=== PATIENT | male | born 1970 ===

== ENCOUNTER 2023-12-11 10:18 | Day surgery (SDC) | payer OTHER ==
[~2023-12-11 10:18] MED LIST: Midazolam 1 MG/ML 2 ML SDV ONE; Propofol 200 MG/20 ML SDV ONE
[2023-12-11] MEDS ORDERED: Sodium Chloride 0.9% 10 ML Syringe FLUSH PRN (10:45)
[2023-12-11] MEDS: Lactated Ringers 1,000 ML IV SCH (11:20)
[2023-12-11] MEDS ORDERED: Propofol 200 MG/20 ML SDV IV ONE (11:43)
== END 2023-12-11 12:28 | disposition home or self-care (01) ==
LOC: LL.SDS 10:18
PROVIDERS: ATTEND Surgery
DX: Z12.11 Encounter for screening for malignant neoplasm of colon (principal); F41.9 Anxiety disorder, unspecified; Z80.0 Family history of malignant neoplasm of digestive organs; Z79.899 Other long term (current) drug therapy
CPT/HCPCS: J2250; J2704; J7120